=== PATIENT | male | born 1940 | race Caucasian/White ===

== ENCOUNTER 2017-05-03 08:00 | Outpatient (RCR) | payer OTHER ==
[~2017-05-03 08:00] MED LIST: ASPIRIN E.C. 8181 MG PO; ATENOLOL25 MG PO; AVAPRO150 MG PO; AVAPRO300 M1 PO; CENTRUM SILVER1 TA1 PO; CRESTOR40 MG PO; ECOTRIN325 MG PO; FISH OIL CONC1000 MG PO; FISH OIL1000 MG PO; FLOMAX 0.40.4 MG/CAP PO; LIP PO; PRILOSEC20 M1 PO
== END 2017-05-10 07:57 | disposition still patient (30) ==
LOC: WSPT 08:00
DX: R26.81 Unsteadiness on feet (principal)
CPT/HCPCS: G8978-GP; G8979-GP; G8980-GP

== ENCOUNTER → 2018-07-26 | Day surgery (SDC) | payer OTHER | LOC: MKS.ESL.PT 09:54 → WSPT 10:00 → EDSTATUS 10:00 | DX: Z02.89 Encounter for other administrative examinations (principal) ==

== ENCOUNTER 2018-09-10 10:45 | Outpatient (RCR) | payer OTHER | END 2018-10-30 | disposition home or self-care (01) | LOC: MKS.ESL.PT | DX: G60.9 Hereditary and idiopathic neuropathy, unspecified (principal); R26.81 Unsteadiness on feet | CPT/HCPCS: G8978-GP; G8979-GP; G8980-GP ==

== ENCOUNTER 2021-09-06 14:11 | Inpatient (IN) | payer MEDICARE ==
[2021-09-06] VITALS (243 sets, daily range): BP systolic 137–140; BP diastolic 87–90; PULSE 72–75; TEMP 98.2–99; O2SAT 71–100
[~2021-09-06] VITALS: Ht 180.3 cm; Wt 104.8 kg
[2021-09-06 14:40] LABS: BASO % 0.2 % (0.0-2.0); GRAN # 7.1 K/mm3 (1.4-6.5); GRAN % 67.5 % (42.2-75.2); HEMATOCRIT 48.5 % (42.0-52.0); HEMOGLOBIN 17.4 g/dl (13.5-18.0); LYMPH # 2.4 K/mm3 (1.2-3.4); MEAN CELL VOLUME 93 fl (80.0-100.0); MEAN CORPUSCULAR HEMOGLOBIN 33 pg (27.0-31.0); MEAN CORPUSCULAR HGB CONC 36 g/dl (33.0-37.0); MEAN PLATELET VOLUME 10.2 fl (7.4-10.4); MONO # 0.8 K/mm3 (0.1-0.6); MONO % 7.9 % (1.7-9.3); PLATELET COUNT 125 K/mm3 (130-400); RED BLOOD COUNT 5.24 M/mm3 (4.20-5.60); REDCELL DISTRIBUTION WIDTH-CV 13.3 % (11.5-14.5)
[2021-09-06 14:43] LABS: ARTERIAL BLD GAS O2 SATURATION 84.8 % (92-100); ARTERIAL BLD GAS TCO2 CT 18.2; ARTERIAL BLOOD GAS BASE EXCESS -4.2 (-2-2); ARTERIAL BLOOD GAS HCO3 17.4 meq/L (22-26); ARTERIAL BLOOD GAS PCO2 25.2 mmHg (35-45); ARTERIAL BLOOD GAS pH 7.46 (7.35-7.45)
[2021-09-06 14:44] LABS: ARTERIAL BLOOD GAS PO2 47.5 mmHg (80-100)
[2021-09-06 15:03] LABS: ALBUMIN 3.4 gm/dL (3.4-4.8); BILIRUBIN,TOTAL 1.9 mg/dL (0.2-1.2); CALCIUM 8.1 mg/dL (8.4-10.2); CREATININE, serum 1.78 mg/dL (0.72-1.25); POTASSIUM 3.8 mmol/L (3.5-4.5); TOTAL PROTEIN 6.9 gm/dL (6.2-8.1)
[2021-09-06] MEDS ORDERED: REPATHA SU140 MG/1 M SQ (15:09)
[2021-09-06] MEDS ORDERED: PROSCAR 5MG5 MG PO (15:09)
[2021-09-06] MEDS ORDERED: TOPROL XL 50MG50 MG PO (15:10)
[2021-09-06] MEDS ORDERED: VITAMIN D 50,1.25 MG PO (15:10)
[2021-09-06] MEDS ORDERED: NORVASC 5MG5 MG/TAB PO (15:10)
[2021-09-06 15:14] LABS: TROPONIN-I 0.237 ng/mL (0.00-0.033)
--- NOTE | 2021-09-06 16:00 | NUR ---
PT ADMITTED FROM ED WITH COVID PNUEMONIA. PT STOOD AND TURNED TO BED. PT IS AXOX4. PT IS SR ON TELE. PT ON BIPAP AT 90%. VSS. PT ORIENTED TO ROOM AND FLOOR. PT INSTRUCTED TO CALL WITH ALL NEEDS. PT'S CLOTHES, WALLET AND SHOES PLACED IN CLOSET. WILL CONTINUE TO MONITOR. Michael ESQUIVEL NOTIFIED OF ELEVATED D-DIMER, STATES SHE WILL PASS ON TO .
--- NOTE | 2021-09-06 16:56 | NUR ---
ON UNIT. NOTIFIED OF D-DIMER. NO NEW ORDERS AT THIS TIME.
--- NOTE | 2021-09-06 18:30 | NUR ---
RT CALLED REGARDING BG. STATES WAS DONE, WILL ATTEMPT TO UPLOAD.
--- NOTE | 2021-09-06 18:56 | NUR ---
ABG RESULTS NOT CROSSING OVER. RESULTS READ TO RORY ESQUIVEL OVER THE PHONE. PH 7.482 pCO2 28.3 pO2 114.6 HCO3 20.7
--- NOTE | 2021-09-06 19:02 | NUR ---
called this RN. Updated on patient and notified of abg results. No new orders at this time. Will continue to [facility].
--- NOTE | 2021-09-06 19:14 | NUR ---
PT'S DAUGHTER ALDAIR- [phone] AUGUSTO [phone]
--- NOTE | 2021-09-06 19:44 | NUR ---
Resting in bed. On bipap. 10/15 at 90%. Assessment complete and charted. Denies needs. Call light in reach.
[2021-09-07] VITALS (707 sets, daily range): BP systolic 125–151; BP diastolic 72–98; PULSE 54–74; TEMP 96.9–99; O2SAT 78–97
[2021-09-07 05:18] LABS: ARTERIAL BLD GAS TCO2 CT 17.7; ARTERIAL BLOOD GAS BASE EXCESS -4.4 (-2-2); ARTERIAL BLOOD GAS PO2 104.5 mmHg (80-100); ARTERIAL BLOOD GAS pH 7.48 (7.35-7.45)
[2021-09-07 05:28] LABS: ARTERIAL BLOOD GAS PCO2 23.5 mmHg (35-45)
--- NOTE | 2021-09-07 06:21 | NUR ---
Patient remained on bipap throughout night. Uneventful. Denies needs this AM. Call light in reach
--- NOTE | 2021-09-07 07:00 | NUR ---
PT RESTING ON BIPAP. VSS. WILL CONTINUE TO MONTIOR.
--- NOTE | 2021-09-07 07:08 | NUR ---
THADDEUS NOTIFIED OF TROP 0.237. NO CHANGE FROM PREVIOUS. CRISTI ADAM NOTIFIED
--- NOTE | 2021-09-07 07:14 | NUR ---
Report given to Elizabet ADAM
[2021-09-07 08:09] LABS: COLLECTION METHOD CLEAN CATCH
[2021-09-07 08:15] LABS: PH 5 (5-8); SQUAMOUS EPITHELIAL None Seen /hpf; URINE APPEARANCE Hazy; URINE BACTERIA None Seen /hpf; URINE BILIRUBIN Negative (NEGATIVE); URINE BLOOD Negative (NEGATIVE); URINE COLOR Yellow; URINE GLUCOSE Negative (NEGATIVE); URINE KETONE Negative (NEGATIVE); URINE LEUKOCYTE ESTERASE Negative (NEGATIVE); URINE NITRATE Negative (NEGATIVE); URINE PROTEIN(semi-quant) 2+ (NEGATIVE); URINE RBC 0-2 /hpf; URINE UROBILINOGEN Negative (NEGATIVE)
[2021-09-07 08:48] LABS: ARTERIAL BLD GAS TCO2 CT 21.6; ARTERIAL BLOOD GAS BASE EXCESS -1.2 (-2-2); ARTERIAL BLOOD GAS HCO3 20.7 meq/L (22-26); ARTERIAL BLOOD GAS PCO2 28.3 mmHg (35-45); ARTERIAL BLOOD GAS PO2 114.6 mmHg (80-100); ARTERIAL BLOOD GAS pH 7.48 (7.35-7.45)
--- NOTE | 2021-09-07 08:59 | NUR ---
Patient is COVID positive. This SW contacted one of patient's daughters, Gisselle Bejarano, , to discuss discharge plan. Gisselle lives in [place] part of the time and in [place] the other part. Delaney lives in [place] full-time and sees patient frequently. Delaney can be reached at [phone]. Gisselle states patient has been fairly healthy and independent until recently when a sick family member visited him. He does not use oxygen and he has no DMEs. He lives alone in [place] most of the time. He sees Dr. Antonieta Morales as his PCP and he receives the majority of his prescriptions from [facility]. He gets one of his meds from [facility] because [facility] does not carry it. Gisselle thought he had her sister, Delaney as an MPOA but there isn't one on patient's chart. SW provided Gisselle with my direct # and we will address his MPOA as patient improves. SW will continue to follow for discharge planning.
--- NOTE | 2021-09-07 20:00 | NUR ---
Assessment complete and charted. On bipap. Denies needs. Call light in reach.
[2021-09-08] VITALS (728 sets, daily range): BP systolic 113–129; BP diastolic 70–77; PULSE 50–57; TEMP 96.9–98.6; O2SAT 78–99
[2021-09-08 04:56] LABS: ARTERIAL BLD GAS O2 SATURATION 94.6 % (92-100); ARTERIAL BLD GAS TCO2 CT 23.5; ARTERIAL BLOOD GAS BASE EXCESS -1.1 (-2-2); ARTERIAL BLOOD GAS HCO3 22.4 meq/L (22-26); ARTERIAL BLOOD GAS PCO2 34.4 mmHg (35-45); ARTERIAL BLOOD GAS pH 7.43 (7.35-7.45)
[2021-09-08 05:28] LABS: HEMATOCRIT 40.5 % (42.0-52.0); MEAN CELL VOLUME 93 fl (80.0-100.0); MEAN CORPUSCULAR HEMOGLOBIN 33 pg (27.0-31.0); MEAN CORPUSCULAR HGB CONC 36 g/dl (33.0-37.0); MEAN PLATELET VOLUME 10.2 fl (7.4-10.4); PLATELET COUNT 158 K/mm3 (130-400); RED BLOOD COUNT 4.38 M/mm3 (4.20-5.60); REDCELL DISTRIBUTION WIDTH-CV 13.3 % (11.5-14.5)
[2021-09-08 05:38] LABS: HEMOGLOBIN 14.5 g/dl (13.5-18.0)
--- NOTE | 2021-09-08 05:41 | NUR ---
Patient had uneventful night. Remained on bipap. Denies needs. Call light in reach.
[2021-09-08 05:44] LABS: ALBUMIN 2.5 gm/dL (3.4-4.8); BILIRUBIN,TOTAL 0.9 mg/dL (0.2-1.2); C-REACTIVE PROTEIN 12.1 mg/dL (0.00-0.50); CALCIUM 8.1 mg/dL (8.4-10.2); CREATININE, serum 1.32 mg/dL (0.72-1.25); POTASSIUM 3.8 mmol/L (3.5-4.5); TOTAL PROTEIN 5.9 gm/dL (6.2-8.1)
[2021-09-08 05:55] LABS: BAND 5 % (0-10); LYMPHOCYTE 18 % (20.0-51.0); NEUTROPHILS 73 % (42.0-75.2); PLATELET ESTIMATE NORMAL (NORMAL)
--- NOTE | 2021-09-08 07:22 | NUR ---
Report given to JAIR Ritter
--- NOTE | 2021-09-08 11:06 | NUR ---
MR. HEART IS LAYING IN BED RESTING WITH BIPAP ON. HEA APPEARS TO BE IN NO DISTRESS OR DISCOMFORT AND UNDERSTANDS THE IMPORTANCE OF KEEPING THE MASK ON. DURING MORNING MED PASS, THE BIPAP WAS BRIEFLY TAKEN OFF FOR PO MEDS, DURING THIS TIME HIS SATS DROPPED INTO THE MID 80S. PUTTING THE MASK BACK ON IT, IT TOOK ABOUT 2 MINUTES FOR HIS SATS TO INCREASE INTO THE LOW 90S. DURING THIS TIME HE DID NOT APPEAR TO BE STRUGGLING WITH AIR. WILL NOTIFY PHYSICIAN DURING MORNING ROUNDS.
--- NOTE | 2021-09-08 18:49 | NUR ---
FAMILY OF MR PORTILLO CALLED,PROVIDED PRIVACY CODE. UPDATE ON PATIENT WAS GIVEN INCLUDING MEDICATIONS HE IS ON DURING HIS STAY. THIS INCLUDED THE REMDESIVIR. THE DAUGHTER, ALDAIR, SAID SHE DOES NOT WANT HER FATHER ON THIS MEDICATION BECAUSE IT HAS SIDE EFFECTS SUCH SLOWING DOWN THE HEART AND KIDNEYS PER HER WORDS. I STATED THAT MR. PORTILLO IS SOUND OF MIND AND HE IS AWARE OF ALL MEDICATIONS THAT HE IS RECIEVEING AND HAS AGREED TO ALL THESE MEDS. AFTER I GOT OFF THE PHONE I WENT INTO HIS ROOM AND RELAYED THIS MESSAGE AND HE STATED THAT HE WANTS TO CONTINUE WITH THIS COURSE OF TREATMENT AND NO CHANGES ARE TO BE MADE. GOT A CALL BACK FROM AUGUSTO, DAUGHTER, AND SHE TOO STATED THAT SHE DOES NOT WANT HER FATHER ON THIS MEDICATION AND THAT SHE WANTS TO TALK TO HER FATHER TO TELL HIM ABOUT THE MEDICATION SIDE EFFECTS. I SAID AT THIS TIME IT WOULD BE BEST TO CALL THE PHYSICIAN IN THE MORNING DURING MORNING ROUNDS , THEN SHE CAN DISCUSS THIS WITH THE PHYSICIAN I DO NOT WANT THE DAUGHTER TO SCARE OR PERSUADE MR. PORTILLO INTO MAKING A DECISION THAT MAY NOT BE BEST FOR HIS CONDITION.
[2021-09-09] VITALS (787 sets, daily range): BP systolic 114–138; BP diastolic 71–83; PULSE 48–52; TEMP 96.7–97.7; O2SAT 79–97
[2021-09-09 05:56] LABS: HEMATOCRIT 38.7 % (42.0-52.0); HEMOGLOBIN 13.5 g/dl (13.5-18.0); MEAN CELL VOLUME 94 fl (80.0-100.0); MEAN CORPUSCULAR HEMOGLOBIN 33 pg (27.0-31.0); MEAN CORPUSCULAR HGB CONC 35 g/dl (33.0-37.0); MEAN PLATELET VOLUME 9.9 fl (7.4-10.4); PLATELET COUNT 192 K/mm3 (130-400); RED BLOOD COUNT 4.11 M/mm3 (4.20-5.60); REDCELL DISTRIBUTION WIDTH-CV 13.5 % (11.5-14.5)
[2021-09-09 06:12] LABS: ALBUMIN 2.4 gm/dL (3.4-4.8); BILIRUBIN,TOTAL 0.6 mg/dL (0.2-1.2); C-REACTIVE PROTEIN 6.22 mg/dL (0.00-0.50); CALCIUM 7.9 mg/dL (8.4-10.2); CREATININE, serum 1.06 mg/dL (0.72-1.25); POTASSIUM 4.3 mmol/L (3.5-4.5); TOTAL PROTEIN 5.4 gm/dL (6.2-8.1)
[2021-09-09 07:20] LABS: BAND 7 % (0-10); METAMYELOCYTE 2 % (0-0); NEUTROPHILS 67 % (42.0-75.2)
[2021-09-09 07:21] LABS: LYMPHOCYTE 19 % (20.0-51.0)
--- NOTE | 2021-09-09 08:56 | NUR ---
Resting in bed with eyes shut; tolerating BIPAP well at this time. Call light within reach; will continue to monitor.
--- NOTE | 2021-09-09 10:22 | NUR ---
Hospitalist updated on patient status; Discussed possibility of initiating TPN, but will hold off until tomorrow. No new orders at this time.
--- NOTE | 2021-09-09 16:00 | NUR ---
Has refused all offers for any food this shift. Did accept a few bites of jello and with sips of water at this time. Only tolerates a few seconds off of BIPAP before 02 desaturates to the low 80's. 02 returns to baseline within 5 minutes. Will continue to monitor.
--- NOTE | 2021-09-09 17:10 | NUR ---
Patient resting in bed; denies any concerns or complaints at this time.
[2021-09-10] VITALS (541 sets, daily range): BP systolic 123–148; BP diastolic 59–85; PULSE 50–54; TEMP 97.2–97.8; O2SAT 78–99
[2021-09-10 05:57] LABS: HEMATOCRIT 40.6 % (42.0-52.0); HEMOGLOBIN 14.2 g/dl (13.5-18.0); MEAN CELL VOLUME 95 fl (80.0-100.0); MEAN CORPUSCULAR HEMOGLOBIN 33 pg (27.0-31.0); MEAN CORPUSCULAR HGB CONC 35 g/dl (33.0-37.0); MEAN PLATELET VOLUME 10.1 fl (7.4-10.4); PLATELET COUNT 231 K/mm3 (130-400); RED BLOOD COUNT 4.28 M/mm3 (4.20-5.60); REDCELL DISTRIBUTION WIDTH-CV 13.6 % (11.5-14.5)
[2021-09-10 06:15] LABS: ALBUMIN 2.6 gm/dL (3.4-4.8); BILIRUBIN,TOTAL 0.8 mg/dL (0.2-1.2); C-REACTIVE PROTEIN 3.76 mg/dL (0.00-0.50); CREATININE, serum 1.07 mg/dL (0.72-1.25); POTASSIUM 4.4 mmol/L (3.5-4.5); TOTAL PROTEIN 5.6 gm/dL (6.2-8.1)
[2021-09-10 06:47] LABS: BAND 15 % (0-10); LYMPHOCYTE 8 % (20.0-51.0); METAMYELOCYTE 3 % (0-0); NEUTROPHILS 67 % (42.0-75.2); PLATELET ESTIMATE NORMAL (NORMAL)
[2021-09-10 10:26] LABS: MAGNESIUM 2.5 mg/dL (1.6-2.6); PHOSPHOROUS 3.1 mg/dL (2.3-4.7)
--- NOTE | 2021-09-10 17:53 | NUR ---
PATIENT MAINTAINING SAME CPAP SETTINGS ON BIPAP. FIO2 IS 90%. HE HAS HAD A COUPLE EPISODES OF ANXIETY TODAY THAT HAVE REQUIRED IV ATIVAN, IT HAS HELPED SIGNIFICANTLY. DAUGHTERS UPDATED TWICE TODAY. TPN STARTED. WILL CONTINUE TO MONITOR.
--- NOTE | 2021-09-10 19:20 | NUR ---
Received report from JAIR Ingram. Patient resting quietly in bed. Continues to wear BiPap on CPAP setting. Tolerating well. All vitals within normal limits. Denies pain or discomfort at this time.
--- NOTE | 2021-09-10 23:00 | NUR ---
Patient experiences sudden anxiety when waking, pulling at BiPap mask and tubing. Patient desats to high 70s to low 80s very quickly and recovers slowly. PRN ativan administered. RT, Tash, notified. Patient switched from CPAP to BiPap mode, receiving 100% FiO2. Patient currently satting 92-94%. Will continue to monitor.
[2021-09-11] VITALS (615 sets, daily range): BP systolic 119–170; BP diastolic 72–97; PULSE 50–73; TEMP 96.7–98.1; O2SAT 54–97
[2021-09-11 04:51] LABS: CALCIUM 7.8 mg/dL (8.4-10.2); CREATININE, serum 1.03 mg/dL (0.72-1.25); MAGNESIUM 2.5 mg/dL (1.6-2.6); PHOSPHOROUS 2.8 mg/dL (2.3-4.7)
[2021-09-11 04:56] LABS: HEMATOCRIT 41.9 % (42.0-52.0); HEMOGLOBIN 14.4 g/dl (13.5-18.0); MEAN CELL VOLUME 96 fl (80.0-100.0); MEAN CORPUSCULAR HEMOGLOBIN 33 pg (27.0-31.0); MEAN CORPUSCULAR HGB CONC 34 g/dl (33.0-37.0); MEAN PLATELET VOLUME 9.8 fl (7.4-10.4); PLATELET COUNT 242 K/mm3 (130-400); RED BLOOD COUNT 4.37 M/mm3 (4.20-5.60); REDCELL DISTRIBUTION WIDTH-CV 13.4 % (11.5-14.5)
[2021-09-11 05:31] LABS: BAND 19 % (0-10); LYMPHOCYTE 11 % (20.0-51.0); METAMYELOCYTE 4 % (0-0); NEUTROPHILS 62 % (42.0-75.2)
[2021-09-11 05:32] LABS: PLATELET ESTIMATE NORMAL (NORMAL)
--- NOTE | 2021-09-11 19:10 | NUR ---
Received report from JAIR Pitts.
--- NOTE | 2021-09-11 20:30 | NUR ---
Patient resting quietly in bed. Continues to wear BiPap; tolerating well. He will awaken and pull at BiPap mask and tubing, desatting quickly to the 70s. Patient is relatively easy to orient. PRN Ativan administered.
--- NOTE | 2021-09-11 23:11 | NUR ---
Patient consistently satting 88%. He has been sleeping quietly. RT, Tash, notified. BiPap settings adjusted. Currently receiving 18/15 with 100% FiO2.
--- NOTE | 2021-09-11 23:40 | NUR ---
Patient exhibiting mild confusion and anxiety when woken. Oxygen saturation has improved to 92-93% with adjusted BiPap settings as previously noted. Yady notified. Received orders to obtain a STAT ABG and to notify with results.
[2021-09-12] VITALS (340 sets, daily range): BP systolic 138; BP diastolic 81; PULSE 53; TEMP 97.4; O2SAT 11–95
[2021-09-12 00:29] LABS: ARTERIAL BLD GAS O2 SATURATION 94.2 % (92-100); ARTERIAL BLD GAS TCO2 CT 22.8; ARTERIAL BLOOD GAS BASE EXCESS -1.5 (-2-2); ARTERIAL BLOOD GAS HCO3 21.8 meq/L (22-26); ARTERIAL BLOOD GAS PCO2 33.3 mmHg (35-45); ARTERIAL BLOOD GAS PO2 73.6 mmHg (80-100); ARTERIAL BLOOD GAS pH 7.43 (7.35-7.45)
--- NOTE | 2021-09-12 01:12 | NUR ---
Patient care, medication administration and nursing documentation occurred during a Daylight Savings Time Change.
--- NOTE | 2021-09-12 04:30 | NUR ---
At approximately 0330, this RN outside of patient's room when patient noted to be pulling at BiPap mask and rolling into the side rail. This RN proceeded to enter patient's room and unsuccessfully attempt to orient the patient to time and place. Despite RN's instructions and efforts, patient continued to claw at BiPap mask, trying to pull it above his head. Patient's O2 noted to be in the 70s and quickly dropping; patient cyanotic. This RN reinforced importance of BiPap mask for patient's breathing to no avail. Patient would not listen and continued to pull at BiPap mask and attempt to roll out of bed. Patient somewhat combative with staff when attempting to replace BiPap mask. This RN called for assistance, and RT was notified. O2 sats at this time noted to be in the 40s. Assisting staff notified THADDEUS, who ordered a one-time dose of ativan to be administered now. After a brief discussion, THADDEUS physician, Dr. Chatterjee, decided intubation would be the best course of action. Yady, hospitalist, notified. Yady proceeded to contact the patient's daughters, Delaney and Gisselle. Delaney and Gisselle together decided to pursue comfort care measures at this time. supervisor kosher dietary service notified of decision.
--- NOTE | 2021-09-12 06:15 | NUR ---
Payroll Master contacted per family's request.
--- NOTE | 2021-09-12 07:00 | NUR ---
Family at bedside this a.m. as they decided overnight to go comfort care; both daughters, Delaney and Gisselle are here, as well as Patricio's son-in-law and granddaughter, who came with her boyfriend. They wanted to know if the doctor was going to round today, as there were some questions/concerns with whether or not they were making the right decision. They were informed that yes, the doctor would be rounding and that they would be free to ask as many questions as they wanted when the doctor came by. Patricio is currently resting, and has the occassional bout of coughing and at times is anxious and restless.
--- NOTE | 2021-09-12 07:17 | NUR ---
Crisis Intervention Counselor offered prayer and support with family gathered.
--- NOTE | 2021-09-12 13:30 | NUR ---
Patient at 1318 today with his two daughters and son-in-law at the bedside. Told them to take as much time as they needed with Patricio.
--- NOTE | 2021-09-12 13:37 | NUR ---
-MDN notified of patient , patient not a candidate, referral # [id number]. Family has chosen [facility] ([phone]).
--- NOTE | 2021-09-12 15:30 | NUR ---
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 The daughters are also in contact with the home.
--- NOTE | 2021-09-12 16:42 | NUR ---
Patricio's daughters took his belongings home with them when they left today; they had also asked about "handwritten prayer notes" that were supposed to have been displayed in the room. The notes were not able to be located today, and if they are found the daughters, Gisselle and/or Delaney, would like to have them.
== END 2021-09-12 15:30 | disposition expired | DRG 177 ==
LOC: COL.ER 14:11 → ICU 15:39
PROVIDERS: Emergency Medicine; Internal Medicine; Internal Medicine Pulmonary Disease; Internal Medicine Sleep Medicine; ADMIT Internal Medicine
PROC: XW033E5 Introduction of Remdesivir Anti-infective into Peripheral Vein, Percutaneous Approach, New Technology Group 5 (ICD-10-PCS; principal; 2021-09-06)
PROC: 5A09557 Assistance with Respiratory Ventilation, Greater than 96 Consecutive Hours, Continuous Positive Airway Pressure (ICD-10-PCS; 2021-09-06)
PROC: 02HV33Z Insertion of Infusion Device into Superior Vena Cava, Percutaneous Approach (ICD-10-PCS; 2021-09-08)
PROC: XW043H5 Introduction of Tocilizumab into Central Vein, Percutaneous Approach, New Technology Group 5 (ICD-10-PCS; 2021-09-08)
DX: U07.1 COVID-19 (principal); J96.01 Acute respiratory failure with hypoxia; J12.82 Pneumonia due to coronavirus disease 2019; I21.A1 Myocardial infarction type 2; E87.2 Acidosis; E87.1 Hypo-osmolality and hyponatremia; N17.9 Acute kidney failure, unspecified; Z66 Do not resuscitate; Z51.5 Encounter for palliative care; I25.10 Atherosclerotic heart disease of native coronary artery without angina pectoris; Z95.1 Presence of aortocoronary bypass graft; E78.5 Hyperlipidemia, unspecified; K21.9 Gastro-esophageal reflux disease without esophagitis; N40.0 Benign prostatic hyperplasia without lower urinary tract symptoms; Z79.82 Long term (current) use of aspirin; I12.9 Hypertensive chronic kidney disease with stage 1 through stage 4 chronic kidney disease, or unspecified chronic kidney disease; N18.30 Chronic kidney disease, stage 3 unspecified
CPT/HCPCS: 99233-AI; C1751; C1892; J0610; J0696; J1100; J1630; J1644; J2060; J2270; J3411; J3475; J7050; J7120; J7131; Q0249